=== PATIENT | male | born 1960 | race African-American/Black ===

== ENCOUNTER 2021-04-29 16:34 | Emergency (ER) | payer BC ==
[~2021-04-29] VITALS: Ht 177.8 cm; Wt 72.6 kg
[2021-04-29 16:43] VITALS: BP_SYST 150
[2021-04-29] MEDS ORDERED: predniSONE 20 MG TABLET PO ONE (17:00)
[2021-04-29] MEDS ORDERED: KETOROLAC TROMETHAMINE 60 MG/2 ML VIAL IM ONE (17:00)
[2021-04-29 17:26] LABS: BASOPHILS % (AUTO) 0.9 % (0.0-2.0); EOSINOPHILS % (AUTO) 0.1 % (0.0-4.0); HEMOGLOBIN 9.9 g/dL (14.0-18.0); LYMPHOCYTES # (AUTO) 0.6 K/uL (1.0-5.5); LYMPHOCYTES % (AUTO) 12.6 % (20.5-51.5); MEAN CORPUSCULAR HEMOGLOBIN 31 pg (27-31); MEAN CORPUSCULAR HGB CONC 33 % (32-36); MEAN CORPUSCULAR VOLUME 94 fL (79.0-98.0); MONOCYTES # (AUTO) 0.5 K/uL (0.0-1.0); MONOCYTES % (AUTO) 11.8 % (1.7-9.3); NEUTROPHILS # (AUTO) 3.4 K/uL (1.8-7.7); NEUTROPHILS % (AUTO) 74.6 % (40.0-70.0); PLATELET COUNT (AUTO) 275 K/uL (130-430); RED BLOOD CELL COUNT(AUTO) 3.18 MIL/uL (4.2-6.2); RED CELL DISTRIBUTION WIDTH 16.3 % (9.0-15.0); WHITE BLOOD COUNT (AUTO) 4.6 K/uL (4.8-10.8)
[2021-04-29] MEDS ORDERED: PRED20TA PO (18:07)
[2021-04-29 18:35] VITALS: BP_SYST 150
== END 2021-04-29 18:35 | disposition home or self-care (01) ==
LOC: SED 16:34
DX: M10.9 Gout, unspecified (principal); I10 Essential (primary) hypertension; Z79.899 Other long term (current) drug therapy
CPT/HCPCS: 36415; 84550; 85025; 96372; 99283; J1885; J7512

== ENCOUNTER 2021-05-31 16:31 | Emergency (ER) | payer BC, SELFPAY ==
[~2021-05-31] VITALS: Ht 177.8 cm; Wt 74.8 kg
[~2021-05-31 16:31] MED LIST: PRED20TA PO
[2021-05-31 16:49] VITALS: BP_SYST 107
--- NOTE | 2021-05-31 16:49 | NUR ---
Pt triaged and placed in tent
--- NOTE | 2021-05-31 16:50 | NUR ---
Pt walked in to ER with c/o runny nose and congestion, states it's getting better with OTC meds. Reports a co-worker's tested positive and he wants to get tested. V/S stable, no acute distress noted.
--- NOTE | 2021-05-31 16:59 | NUR ---
WILLIAM Beckwith at bedside examining patient.
--- NOTE | 2021-05-31 17:15 | NUR ---
Patient given written and verbal discharge instructions and verbalizes understanding. ER MD discussed with patient the results and treatment provided. Patient in stable condition. ID arm band removed. No prescriptions given. Patient educated on pain management and to follow up with PMD. Pain Scale 0. Opportunity for questions provided and answered. Medication side effect fact sheet provided.
[2021-05-31 17:23] VITALS: BP_SYST 107
== END 2021-05-31 17:23 | disposition home or self-care (01) ==
LOC: SED 16:31
DX: U07.1 COVID-19 (principal); I10 Essential (primary) hypertension; Z79.899 Other long term (current) drug therapy
CPT/HCPCS: 99283; C9803; U0003

== ENCOUNTER 2022-09-21 17:53 | Emergency (ER) | payer BC ==
[~2022-09-21] VITALS: Ht 177.8 cm; Wt 72.6 kg
[2022-09-21 18:05] VITALS: BP_SYST 132
--- NOTE | 2022-09-21 21:15 | NUR ---
ER examining patient in the triage room.
[2022-09-21] MEDS ORDERED: KETOROLAC TROMETHAMINE 60 MG/2 ML VIAL IM ONE (21:30)
[2022-09-21] MEDS ORDERED: ALLO300T2 PO (22:18)
[2022-09-21 22:30] VITALS: BP_SYST 128
--- NOTE | 2022-09-21 22:31 | NUR ---
Patient given verbal discharge instructions by Dr Moss and verbalizes understanding.Pt left w/o waiting for written after care instruction. ER MD discussed with patient the results and treatment provided. Patient in stable condition. ID arm band removed. Rx of Allopurinol given. Patient educated on pain management and to follow up with PMD. Pain Scale 0/10. Opportunity for questions provided and answered. Medication side effect fact sheet provided.
== END 2022-09-21 22:30 | disposition home or self-care (01) ==
LOC: SED 17:53
DX: M10.9 Gout, unspecified (principal); M79.641 Pain in right hand; I10 Essential (primary) hypertension; Z79.899 Other long term (current) drug therapy
CPT/HCPCS: 99283; 96372; J1885

== ENCOUNTER 2022-10-25 12:59 | Emergency (ER) | payer BC ==
[~2022-10-25] VITALS: Ht 177.8 cm; Wt 74.8 kg
[~2022-10-25 12:59] MED LIST changes: +ALLO300T2 PO
[2022-10-25 13:52] VITALS: BP_SYST 134
--- NOTE | 2022-10-25 13:52 | NUR ---
Patient triaged and placed in waiting room. VSS and patient appears in no acute distress at this time. Accompanied by SELF, awaiting available bed, and MD notified of need for MSE.
--- NOTE | 2022-10-25 14:20 | NUR ---
ER DR. BARKSDALE EXAMINING PT IN TRIAGE
[2022-10-25] MEDS ORDERED: KETOROLAC TROMETHAMINE 60 MG/2 ML VIAL IM ONE (14:30)
[2022-10-25] MEDS ORDERED: DICL20GE TP (17:10)
[2022-10-25] MEDS ORDERED: DICL75TA5 PO (17:10)
[2022-10-25 17:17] VITALS: BP_SYST 134
--- NOTE | 2022-10-25 17:17 | NUR ---
Patient given written and verbal discharge instructions and verbalizes understanding. ER MD discussed with patient the results and treatment provided. Patient in stable condition. ID arm band removed. Rx of VOLTAREN AND VOLTAREN CREAM given. Patient educated on pain management and to follow up with PMD. Pain Scale 0/10. Opportunity for questions provided and answered. Medication side effect fact sheet provided.
== END 2022-10-25 17:17 | disposition home or self-care (01) ==
LOC: SED 12:59
DX: M10.041 Idiopathic gout, right hand (principal); R22.31 Localized swelling, mass and lump, right upper limb; I10 Essential (primary) hypertension; Z79.899 Other long term (current) drug therapy
CPT/HCPCS: 99284; 93971; 96372; J1885